=== PATIENT | male | born 1970 | race Caucasian/White ===

== ENCOUNTER 2020-09-20 14:28 | Emergency (ER) | payer OTHER ==
[~2020-09-20 14:28] MED LIST: AUGMENTIN 875-1 EACH PO; PERCOCET 5-3251 EACH PO
[2020-09-20 15:42] LABS: HEMOGLOBIN 15.2 gm/dl (14.0-17.5); RED BLOOD COUNT 4.81 M/UL (4.20-5.50); WHITE BLOOD COUNT 4.8 K/UL (4.5-11.0)
[2020-09-20 16:04] LABS: BUN/CREATININE RATIO 13 (0-10)
== END 2020-09-20 17:43 | disposition home or self-care (01) ==
LOC: ER1 14:28
PROVIDERS: Family Medicine
DX: R07.89 Other chest pain (principal); N28.9 Disorder of kidney and ureter, unspecified; E11.9 Type 2 diabetes mellitus without complications; J45.909 Unspecified asthma, uncomplicated; I10 Essential (primary) hypertension
CPT/HCPCS: 71045; 80053; 82550; 82553; 83874; 83880; 84484; 85025; 85379; 93005; 96374; 99285; J1885

== ENCOUNTER 2020-12-25 23:45 | Observation (INO) | payer OTHER ==
[~2020-12-25] VITALS: Ht 172.7 cm; Wt 138.3 kg
== END 2020-12-26 16:24 | disposition home or self-care (01) ==
LOC: ER1 23:45 → CDU 12-26 02:12 → M/S 12-26 06:41
PROVIDERS: ADMIT Surgery
DX: T18.128A Food in esophagus causing other injury, initial encounter (principal); K22.2 Esophageal obstruction; U07.1 COVID-19; Z90.49 Acquired absence of other specified parts of digestive tract; Z88.8 Allergy status to other drugs, medicaments and biological substances
CPT/HCPCS: 71045; 82962; 99284; G0378; J1100; J1170; J2001; J2405; J2704; J3010; J7120; U0002